=== PATIENT | male | born 1990 | race Caucasian/White ===

== ENCOUNTER 2023-10-07 18:30 | Emergency (ER) | payer SELFPAY ==
[2023-10-07 18:38] VITALS: TEMP 99; BMI 31.7
[2023-10-07] MEDS ORDERED: ACETAMINOPHEN 325 MG TABLET (FP) PO ONE (19:32)
[2023-10-07] MEDS ORDERED: ACETAMINOPHEN 325 MG TABLET (FP) ONE (19:45)
[2023-10-07 20:56] LABS: BASO % 0.7 % (0-2.0); EOS % 1.5 % (0-4.5); HEMATOCRIT 43.8 % (35.4-49); HEMOGLOBIN 14.6 GM/dL (11.7-16.9); LYMPH % 26.7 % (8-40); MCH 27.8 pg (25.7-33.7); MCHC 33.3 g/dl (32.0-35.9); MEAN CELL VOLUME 83.5 fl (80-96); MEAN PLT VOLUME 7.3 fl (7.5-11.1); MONO % 9.3 % (3.8-10.2); NEUT % 61.8 % (42.8-82.8); PLATELET COUNT 306 10^3/uL (134-434); RBC 5.25 M/mm3 (4.00-5.60); RDW 14.4 % (11.9-15.9); WHITE BLOOD COUNT 8.1 K/mm3 (4.0-10.0)
[2023-10-07 21:08] LABS: INR 0.93 (0.83-1.09); PROTHROMBIN TIME (PATIENT) 10.8 SEC (9.7-13.0)
[2023-10-07 21:11] LABS: ACTIVATED PTT 29.5 SECONDS (25.2-36.5)
[2023-10-07 21:22] LABS: POTASSIUM 3.9 mmol/L (3.5-5.1)
[2023-10-07 21:24] LABS: CALCIUM 9.3 mg/dL (8.5-10.1)
[2023-10-07 21:25] LABS: ALBUMIN 4.1 g/dl (3.4-5.0); BLOOD UREA NITROGEN 20.7 mg/dL (7-18)
[2023-10-07 21:28] LABS: CREATININE 0.9 mg/dL (0.55-1.3)
[2023-10-07 21:29] LABS: BILIRUBIN,TOTAL 0.8 mg/dL (0.2-1)
[2023-10-07 21:30] LABS: TOT PROT 7.4 g/dl (6.4-8.2)
[2023-10-08 01:03] VITALS: BP 101/59; PULSE 85; RESP 16
== END 2023-10-08 01:25 | disposition home or self-care (01) ==
LOC: JER 18:30
DX: N50.82 Scrotal pain (principal); K40.90 Unilateral inguinal hernia, without obstruction or gangrene, not specified as recurrent
CPT/HCPCS: 36415; 74177-TC; 76870-TC; 80053; 83605; 85025; 85610; 85730; 86850; 86900; 86901; 99285-25; Q9967